=== PATIENT | male | born 1965 | race Caucasian/White ===

== ENCOUNTER → 2019-06-23 | Outpatient (CLI) | payer OTHER ==
[~2019-06-23] MED LIST: COLA100C5 PO; KLON0.5T PO; LEXA5TAB13 PO; PERC5TAB12 PO
--- NOTE | 2019-06-23 12:16 | REP ---
MRI lumbar spine without contrast: History: Disc degeneration. Low back pain and left leg numbness. Technique: Sagittal and axial T1 and T2-weighted scans are acquired in the usual fashion with and without fat saturation. Sequences include spin echo, turbo spin-echo, and STIR imaging sequences. MRI findings: There is straightening of the normal lumbar lordosis. The tip of the conus medullaris is normal in position and appearance at T12-L1. No extra vertebral abnormality is observed. Vertebral body heights are preserved. There are degenerative disc changes throughout the lumbar spine with reactive marrow edema at several levels. There are Schmorl's nodes on either side of the L2-3 disc on the right posteriorly. Reactive marrow changes are also noted at the L3-4, L4-5, and L5-S1. Axial and sagittal images taken at the L1-2 disc level demonstrate a small focal disc protrusion in the left posterior disc margin indenting the ventral margin of the thecal sac. There is diffuse bulging of the remainder of the disc. Mild ligamentum flavum and facet hypertrophy is seen. No canal stenosis is seen. At L2-3, there is a broad-based moderate sized focal disc protrusion extending caudally over the posterior margin of the L3 vertebral body. This indents the ventral margin of the thecal sac and combined with ligamentum flavum and facet hypertrophy, produces mild central canal stenosis. No foraminal stenosis is seen. At the L3-4 disc level, there is a moderate sized left posterior disc protrusion extending caudally which compresses the thecal sac. This disc protrusion measures 13 mm in medial to lateral span by 6 mm anteroposterior by 11 mm craniocaudal. There is compression of the thecal sac and exiting left fourth root from this disc protrusion. There is ligamentum flavum and facet hypertrophy and there is mild central canal stenosis at L3-4. No foraminal narrowing is seen. At L4-5, there is diffuse disc bulging. Mild central canal stenosis is present due to this in combination with ligamentum flavum and facet hypertrophy. The mid line AP dimension of the thecal sac at L4-5 is 10.5 mm. There is mild bilateral foraminal narrowing due to facet hypertrophy and disc bulging at L4-5. At L5-S1, there is facet hypertrophy bilaterally. There is a right foraminal disc protrusion with spurring producing significant right-sided neural foraminal narrowing. There is mild to moderate left-sided neural foraminal narrowing as well at L5-S1 from facet hypertrophy and disc bulging. Impression: Degenerative spondylosis changes. Focal disc protrusions at L2-3, L3-4. Mild central canal stenosis as above. Significant neural foraminal narrowing bilaterally at L5-S1 due to facet hypertrophy and disc bulging. Electronically Signed by Chris Villar MD 06/23/2019 12:46 P
== END ==
LOC: M RAD 09:20
PROVIDERS: ATTEND Physician Assistant
DX: M48.061 Spinal stenosis, lumbar region without neurogenic claudication (principal); M51.46 Schmorl's nodes, lumbar region; M51.26 Other intervertebral disc displacement, lumbar region; M51.36 Other intervertebral disc degeneration, lumbar region